=== PATIENT | female | born 1945 | race Caucasian/White ===

== ENCOUNTER → 2024-09-13 10:31 | Outpatient (CLI) | payer MEDICARE, SELFPAY | PROVIDERS: PCP Family Medicine; Visit Provider Obstetrics & Gynecology | DX: R30.0 Dysuria (principal) | CPT/HCPCS: 87077; 87086; 87186 ==

== ENCOUNTER → 2024-10-23 10:29 | Outpatient (CLI) | payer MEDICARE, SELFPAY ==
[2024-10-23 13:24] LABS: Appearance Urine UA SL CLOUDY; Bilirubin Urine UA NEGATIVE (NEGATIVE); Color Urine UA YELLOW; Glucose Urine UA NEGATIVE (Negative); Ketones Urine UA NEGATIVE (NEGATIVE); Leukocyte Esterase Urine UA 3+ (NEGATIVE); Nitrite Urine UA POSITIVE (Negative); Occult Blood Urine UA TRACE-INTACT (Negative); Protein Urine UA NEGATIVE (Negative); Specific Gravity Urine UA <=1.005 (1.000-1.035); Urobilinogen Urine UA 0.2 E.U./dL (0.2)
[2024-10-23 13:25] LABS: pH Urine UA 6.5 (4.5-8.0)
[2024-10-23 13:54] LABS: Urine Volume 10mL (spun)
[2024-10-23 13:56] LABS: Bacteria Urine Many (>30); Culture Indicated Urine Specimen Cultured; RBC Urine 0-1/HPF (0-5/HPF); Squamous Epithelial Cell Urine 0-1 /HPF (0-5/HPF); WBC Urine 30-100/HPF (0-5/HPF)
== END ==
PROVIDERS: PCP Family Medicine; Referring Provider Obstetrics & Gynecology; Visit Provider Obstetrics & Gynecology
DX: R82.90 Unspecified abnormal findings in urine (principal)
CPT/HCPCS: 81001; 87077; 87086; 87186

== ENCOUNTER 2024-11-15 08:42 | Day surgery (SDC) | payer MEDICARE, SELFPAY ==
[2024-11-10 13:31] VITALS: BMI 24.6
[2024-11-15] MEDS: LACTATED RINGERS 1,000 ML 42 ML IV (09:13)
[2024-11-15] MEDS: ACETAMINOPHEN 325 MG TABLET 975 MG PO (09:16)
[2024-11-15] MEDS: FAMOTIDINE 20 MG/2 ML VIAL IV (09:16)
[2024-11-15 09:27] VITALS: BP 145/82; PULSE 73; RESP 16; TEMP 36.1; O2SAT 98
[2024-11-15 09:28] VITALS: BMI 24.7
--- NOTE | 2024-11-15 09:55 | PM.PREOP ---
Pre-operative Note Interval Note History & Physical reviewed/Exam performed by Physician: Yes Changes to H&P: No H&P completed within 30 days and has changed as indicated here:: 11/02/24 ASA Class (for procedural sedation): II
--- NOTE | 2024-11-15 09:56 | P.OP_ITS ---
Operative Date/Time/Diagnoses Date of procedure: 11/15/24 Time of procedure: 11:15 Pre-op diagnosis: abnormal pelvic US Post-op diagnosis: same Procedure & Clinicians Procedure: hysteroscopy, myosure polypectomy, dilation and curettage Same procedure as scheduled: No (unable to perform secondary to uterine perforation ) Indications: abnormal pelvic US Surgeon: Denise Weston Click Yes if Unassisted: Yes Anesthesia Type: General Operative Notes Closure Type: not applicable Specimen(s): none sent Estimated Blood Loss (mL): 5 Blood products transfused: none Procedure in detail: Pt was taken to the operating room, transferred to OR table and anesthesia was induced with placement of LMA.? Pt had her legs placed in [place] stirrups and an exam under anesthesia was performed. The patient was prepped and draped in a sterile fashion.? A time out was performed. ?The bladder was emptied via straigh t catheter in sterile fashion of approximately 400cc clear urine.? A sterile speculum was inserted into the vagina.? The cervix was visualized and grasped anteriorly using a single tooth tenaculum.?The cervix was noted to be extremely stenotic. No hysteroscopic scissors available in facility, repeated attempts at blunt dilation using cervical os finder ultimately successful however posterior midline uterine perforation noted at time of hysteroscope placement. The hysteroscope was immediately removed and anesthesia notified of unanticipated complication. No excessive bleeding noted and patient remained hemodynamically stable. Total fluid deficit calculated at <75cc normal saline. IV antibiotics administered (2g ancef). Tenaculum removed from cervix and hemostasis acheived with application of monsel's solution. The speculum was removed and hemostasis was again noted to be excellent.? The patient then had her legs taken out of stirrups.? The patient tolerated the procedure well and without difficulty.? The patient was awakened from anesthesia and taken to PACU in stable condition. Complications: other (posterior uterine perforation without active bleeding ) Post-operative Condition: stable Disposition: PACU Plan for aftercare: anticipate dc to home following routine postoperative recovery and evaluation patient and family counseled on intraoperative complication (midline posterior uterine perforation) at time of cervical dilation, recommendation to return for procedure with pre-procedural cervical ripening
--- NOTE | 2024-11-15 10:37 | SUR.OPER ---
Lithotomy on padded OR bed, head on pillow, arms secured on padded arm boards at <90 degrees abduction. Legs secured in padded yellow fins stirrups.
[2024-11-15] MEDS: CEFAZOLIN VIAL 1 GM in SODIUM CHLORIDE 0.9% 100 ML IV (11:00)
[2024-11-15] MEDS: SILVER NITRATE STICK 1 EACH TOP (11:01)
[2024-11-15] MEDS: FERRIC SUBSULFATE 8 ML SOLUTION TOP (11:02)
[2024-11-15 11:10] VITALS: BP 128/67; PULSE 85; RESP 12; TEMP 36.3; O2SAT 96
[2024-11-15 11:15] VITALS: BP 117/69; PULSE 78; RESP 11; O2SAT 99
[2024-11-15 11:20] VITALS: BP 117/73; PULSE 78; RESP 10; O2SAT 97
[2024-11-15 11:25] VITALS: BP 118/76; PULSE 85; RESP 20; O2SAT 98
[2024-11-15 11:34] VITALS: BP 133/72; PULSE 78; RESP 13; TEMP 36.2; O2SAT 99
== END 2024-11-15 11:55 | disposition home or self-care (01) ==
PROVIDERS: PCP Family Medicine; Referring Provider Obstetrics & Gynecology; Visit Provider Obstetrics & Gynecology
PROC: 0UDB8ZZ Extraction of Endometrium, Via Natural or Artificial Opening Endoscopic (ICD-10-PCS; CPT 58558; principal; 2024-11-15 10:15)
DX: R93.89 Abnormal findings on diagnostic imaging of other specified body structures (principal); N99.71 Accidental puncture and laceration of a genitourinary system organ or structure during a genitourinary system procedure; N88.2 Stricture and stenosis of cervix uteri; Z53.09 Procedure and treatment not carried out because of other contraindication
CPT/HCPCS: 58558; A9270; J0330; J0690; J1100; J2405; J2704; J3010; J3490

== ENCOUNTER → 2025-01-03 15:49 | Outpatient (CLI) | payer MEDICARE, SELFPAY ==
[2025-01-03 16:23] LABS: Bilirubin Urine UA NEGATIVE (NEGATIVE); Color Urine UA YELLOW; Glucose Urine UA NEGATIVE (Negative); Ketones Urine UA NEGATIVE (NEGATIVE); Leukocyte Esterase Urine UA 3+ (NEGATIVE); Nitrite Urine UA POSITIVE (Negative); Occult Blood Urine UA 1+ (Negative); Protein Urine UA TRACE (Negative); Urobilinogen Urine UA 0.2 E.U./dL (0.2)
[2025-01-03 16:24] LABS: Appearance Urine UA CLOUDY
[2025-01-03 16:57] LABS: Bacteria Urine Few (2-10); RBC Urine 0-1/HPF (0-5/HPF); Urine Volume 10mL (spun); WBC Urine >100/HPF (0-5/HPF)
[2025-01-03 16:58] LABS: Culture Indicated Urine Specimen Cultured; Squamous Epithelial Cell Urine 0-1 /HPF (0-5/HPF)
== END ==
PROVIDERS: PCP Family Medicine; Referring Provider Obstetrics & Gynecology; Visit Provider Obstetrics & Gynecology
DX: N39.0 Urinary tract infection, site not specified (principal)
CPT/HCPCS: 81001; 87086

== ENCOUNTER → 2025-02-16 15:41 | Outpatient (CLI) | payer MEDICARE, SELFPAY ==
[2025-02-16 16:20] LABS: Appearance Urine UA CLEAR; Bilirubin Urine UA NEGATIVE (NEGATIVE); Color Urine UA YELLOW; Glucose Urine UA NEGATIVE (Negative); Ketones Urine UA NEGATIVE (NEGATIVE); Leukocyte Esterase Urine UA 3+ (NEGATIVE); Nitrite Urine UA POSITIVE (Negative); Occult Blood Urine UA 1+ (Negative); Protein Urine UA NEGATIVE (Negative); Specific Gravity Urine UA <=1.005 (1.000-1.035); Urobilinogen Urine UA 0.2 E.U./dL (0.2)
[2025-02-16 16:28] LABS: Amorphous Sediment Urine 1+; Bacteria Urine Many (>30); Culture Indicated Urine Specimen Cultured; RBC Urine 1-5/HPF (0-5/HPF); Squamous Epithelial Cell Urine 5-10 /HPF (0-5/HPF); Urine Volume 10mL (spun); WBC Urine 10-30/HPF (0-5/HPF)
== END ==
PROVIDERS: PCP Family Medicine; Referring Provider Obstetrics & Gynecology; Visit Provider Obstetrics & Gynecology
DX: R82.90 Unspecified abnormal findings in urine (principal)
CPT/HCPCS: 81001; 87077; 87086; 87186

== ENCOUNTER 2025-02-21 10:33 | Day surgery (SDC) | payer MEDICARE, SELFPAY ==
[2025-02-21 11:43] VITALS: BP 129/82; PULSE 73; RESP 16; TEMP 36.6; O2SAT 98; BMI 24.2
[2025-02-21] MEDS: ACETAMINOPHEN 325 MG TABLET 975 MG PO (11:58)
[2025-02-21] MEDS: LACTATED RINGERS 1,000 ML 42 ML IV (12:00)
--- NOTE | 2025-02-21 14:15 | P.HPOB_ITS ---
History of Present Illness History of Present Illness Narrative: Mario Belcher is a 79 year old postmenopausal female who presents for scheduled outpatient procedure, hysteroscopy with polypectomy/D&C secondary to known abnormal pelvic imaging. Patient previously underwent same procedure 11/15/24 which was unfortunately unable to completed as scheduled secondary to uterine perforation. Patient was rescheduled for procedure to today following adequate vaginal estrogen and pre-procedure cervical ripening with misoprostol. Patient today states that she took medication yesterday evening as prescribed. She denies any vaginal bleeding, does report persistent malodorous discharge for several weeks following last procedure and is hoping this does not recur. Denies significant changes in personal or family medical history since time of last encounter. Affirms desire to proceed with procedure today as scheduled. [facility] Medical History (Updated 11/10/24 @ 13:36 by Tia Manuel RN) Overactive bladder Genitourinary syndrome of menopause Abnormal pelvic ultrasound Surgical History (Updated 02/15/25 @ 12:09 by Angie Adam RN) History of gynecologic surgery (11/15/24) Family History (Updated 08/07/17 @ 00:00 by Conversion Provider) Brother Stroke Hypertension High cholesterol Mother Heart disease Hypertension High cholesterol Sister Age: 90 Heart disease Hypertension High cholesterol Social History household members: spouse Smoking Status: Never smoker alcohol intake: current Meds Home Medications and Allergies Home Medications Medication Instructions Recorded Confirmed Type meloxicam 15 mg tablet 15 mg PO PRN PRN Pain (Scale Score 08/02/16 02/21/25 History 4-6) ##0 estradiol 0.01% (0.1 mg/gram) 1 g vaginal DAILY #42.5 grams 11/02/24 11/15/24 Rx vaginal cream (Estrace) ciprofloxacin HCl 500 mg tablet 500 mg PO BID 11/15/24 11/15/24 History hydrocodone 5 mg-acetaminophen 325 1 tab PO 4XD PRN Pain (Scale Score 11/15/24 02/21/25 History mg tablet 4-6) fosfomycin tromethamine 3 gram 1 packet PO ONCE #1 ea 12/03/24 12/03/24 Rx oral packet fosfomycin tromethamine 3 gram 3 g PO ONCE #1 ea 02/17/25 Rx oral packet Allergies Allergy/AdvReac Type Severity Reaction Status Date / Time oxybutynin [OXYBUTYNIN] Allergy Mild severe rash Verified 02/21/25 11:21 Review of Systems Review of Systems ROS: Yes All systems reviewed with the patient and are negative except as otherwise documented Exam Vital Signs (past 8 hours): - 02/21/25 11:43 Temperature 97.8 F Pulse Rate 73 Respiratory Rate 16 Blood Pressure 129/82 Pulse Oximetry 98 Const General: cooperative, healthy appearing, comfortable and well developed Nutritional Appearance: average body habitus Orientation: alert, awake and oriented x3 Limitations: mental status not altered Resp Effort & Inspection: normal respiratory effort and able to speak in complete sentences Cardio Pulses: normal peripheral pulses Other: deferred per shared decision making with patient Back/Spine/Pelvis Back: normal to inspection Skin General: no rashes or lesions noted Extrem General: normal to inspection Psych Mental Status: mental status grossly normal Judgment: judgment good Assessment & Plan Assessment and plan (1) Abnormal pelvic ultrasound: Status: Acute Plan 79yo postmenopausal female presents for scheduled outpatient procedure, hysteroscopy with polypectomy/D&C secondary to abnormal pelvic US Patient affirms desire to proceed with procedure as scheduled risks, benefits and alternatives to procedure reviewed, pt verbalized understanding and desires to proceed operative consent completed routine f/u in office as scheduled Time-Based Coding :: [TOTAL MINUTES] spent with patient and on the chart (including review of chart, obtaining history, exam, reviewing outside data, placing orders, documenting exam and treatment plan, and counseling patient) on [DATE].
--- NOTE | 2025-02-21 14:15 | PM.PREOP ---
Pre-operative Note Interval Note History & Physical reviewed/Exam performed by Physician: Yes Changes to H&P: No ASA Class (for procedural sedation): II
--- NOTE | 2025-02-21 14:38 | SUR.OPER ---
Lithotomy on padded OR bed, head on pillow, arms secured on padded arm boards at <90 degrees abduction. Legs secured in padded yellow fins stirrups.
--- NOTE | 2025-02-21 14:53 | P.OP_ITS ---
Operative Date/Time/Diagnoses Date of procedure: 02/21/25 Time of procedure: 14:53 Pre-op diagnosis: abnormal pelvic ultrasound Post-op diagnosis: same Procedure & Clinicians Procedure: Procedures Operation Date: 02/21/25 12:15 Actual Procedure Side Surgeon p Exam under anesthesia Denise Weston MD Indications: abnormal pelvic ultrasound Surgeon: Denise Weston Anesthesia Type: General Operative Notes Findings: normal external female genitalia noted anterior/posterior prolapse (anterior predominant) cervix completely flush to vaginal apex, unable to visually identify and only 0.5cm palpable area of cervical stroma on bimanual exam severe cervical stenosis Closure Type: not applicable Specimen(s): none Estimated blood loss (mL): 0 Blood products transfused: none Procedure in detail: Pt was taken to the operating room, transferred to OR table and anesthesia was induced with placement of LMA.? Pt had her legs placed in [place] stirrups and an exam under anesthesia was performed. The patient was prepped and draped in a st erile fashion.? A time out was performed. ?The bladder was emptied via straight catheter in sterile fashion.? A sterile speculum was inserted into the vagina however was unable to be used secondary to introital stenosis. Srivastava retractors used anteriorly and posteriorly and vaginal apex visualized. Thorough visual inspection of vaginal apex without clear visualization of identifiable cervix. A bimanual exam was performed with palpable 0.5cm cervix and retractors replaced. Presumed anterior cervix was grasped using single tooth tenaculum and with gentle blunt interrogation of the apex using lacrimal duct finder the external os was able to be identified. The diagnostic hysteroscope was used for attempted hydrodisection of the endocervical canal, however severe resistance met approximately 4mm proximal to external os and decision made at that time to stop procedure due to increased risk of iatrogenic injury.? The tenaculum was removed and hemostasis was noted at insertion sites.? The srivastava retractors were removed and hemostasis was again noted to be excellent.? The patient then had her legs taken out of stirrups.? The patient tolerated the procedure well and without difficulty.? The patient was awakened from anesthesia and taken to PACU in stable condition. Complications: other (unable to complete procedure as scheduled ) Post-operative Condition: stable Disposition: PACU Plan for aftercare: dc to home pending clinical recovery, f/u in office as scheduled routine postoperative counseling
[2025-02-21 14:57] VITALS: BP 150/76; PULSE 83; RESP 16; TEMP 36.1; O2SAT 99
[2025-02-21 15:02] VITALS: BP 148/71; PULSE 72; RESP 14; TEMP 36.1; O2SAT 100
[2025-02-21 15:07] VITALS: BP 150/68; PULSE 66; RESP 16; O2SAT 99
[2025-02-21 15:08] VITALS: BP 148/67; PULSE 68; RESP 16; O2SAT 100
[2025-02-21 15:50] VITALS: BP 148/84; PULSE 69; RESP 16; TEMP 36.2; O2SAT 98
== END 2025-02-21 15:56 | disposition home or self-care (01) ==
PROVIDERS: PCP Family Medicine; Referring Provider Obstetrics & Gynecology; Visit Provider Obstetrics & Gynecology
PROC: 0UDB8ZZ Extraction of Endometrium, Via Natural or Artificial Opening Endoscopic (ICD-10-PCS; CPT 58558; principal; 2025-02-21 12:15)
DX: R93.89 Abnormal findings on diagnostic imaging of other specified body structures (principal); N88.2 Stricture and stenosis of cervix uteri; N81.10 Cystocele, unspecified
CPT/HCPCS: 57410; J1100; J2405; J2704; J3010

== ENCOUNTER → 2025-05-04 12:10 | Outpatient (CLI) | payer MEDICARE, SELFPAY ==
[2025-05-04 19:36] LABS: Appearance Urine UA SL CLOUDY; Bilirubin Urine UA NEGATIVE (NEGATIVE); Color Urine UA YELLOW; Glucose Urine UA NEGATIVE (Negative); Ketones Urine UA NEGATIVE (NEGATIVE); Leukocyte Esterase Urine UA 1+ (NEGATIVE); Nitrite Urine UA POSITIVE (Negative); Occult Blood Urine UA TRACE-INTACT (Negative); Protein Urine UA NEGATIVE (Negative); Urobilinogen Urine UA 0.2 E.U./dL (0.2)
[2025-05-04 19:56] LABS: Bacteria Urine Many (>30); Culture Indicated Urine Specimen Cultured; RBC Urine 0-1/HPF (0-5/HPF); Squamous Epithelial Cell Urine None Seen (0-5/HPF); Urine Volume 10mL (spun); WBC Urine 10-30/HPF (0-5/HPF)
== END ==
PROVIDERS: PCP Family Medicine; Visit Provider Obstetrics & Gynecology Gynecology
DX: N39.3 Stress incontinence (female) (male) (principal)
CPT/HCPCS: 81001; 87077; 87086; 87186